=== PATIENT | female | born 1990 | race Caucasian/White ===

== ENCOUNTER 2023-11-25 11:53 | Outpatient (CLI) | payer OTHER, SELFPAY ==
[2023-11-26 15:24] LABS: Strep B DNA Probe Negative (Negative)
[2023-11-26 17:04] LABS: Strep B Susceptibility Needed? No
== END 2023-11-25 11:54 | disposition home or self-care (01) ==
PROVIDERS: Visit Provider Advanced Practice Midwife
DX: Z34.91 Encounter for supervision of normal pregnancy, unspecified, first trimester (principal)
CPT/HCPCS: 86592; 86703; 86704; 86706; 86762; 86787; 86803; 86850; 86900; 86901; 87081; 87086; 87340; 87653

== ENCOUNTER 2023-12-02 12:19 | Outpatient (CLI) | payer OTHER, SELFPAY ==
--- NOTE | 2023-12-02 12:28 | US_ITS ---
Patient: ROLAND HOLDER Facility:?[facility] R[facility] Patient ID:?[id number] Site Patient ID:?[id number]. Site :?1990 Study:?US-OB Pelvis BPP W GROWTH AND UA DOPPLER-12/02/2023 1:06:29 PM Ordering Physician:LEODAN RUTHERFORD Final Report: Indication: Nonreactive nonstress test. Small for dates. Technique: Sonography of the gravid uterus was performed limited to that which is discussed below. Comparison: There are no prior studies for comparison. Findings: The LMP is 12/16/2023. The gestational age is given to be 38 weeks and 0 days based on the LMP. There is no prior ultrasound to my knowledge. The cervix is not visualized. There is a single live intrauterine gestation that is vertex. The single deepest pocket is 4.4 centimeters. A biophysical profile score was performed as per protocol. The total score is 8/8 for gross body movements, tone, respiratory activity and single deepest pocket greater than 2 centimeters. heart rate is 122 beats per minute. Umbilical artery Doppler was performed. An S/D ratio was calculated at 2.1. This is considered normal as it is less than 3.5 at< 34 weeks. The placenta was posterior left lateral. The position relative to the os was uncertain as the head was interposed and the internal os was not clearly identified. Biometry: BPD is 8.9 centimeters corresponding to 35 weeks and 5 days. This is at the 16th percentile Head circumference is 32.1 centimeters corresponds to 36 weeks and 1 day. This is at the 4th percentile Abdominal circumference is 31.5 centimeters corresponding to 35 weeks and 3 days. This is at the 7th percentile Femur length is 7.3 centimeters corresponding to 37 weeks and 1 day. This is at the 30th percentile Estimated weight is 2823 grams. This is at the 16th percentile Impression: 1. The biophysical profile score is 8/8. 2. The umbilical artery S/D ratio is 2.1 which is normal. 3. Average ultrasound age based on current biometry is 36 weeks and 1 day with an estimated date of delivery of 12/29/2023. This is not concordant with the age predicted by LMP which is 38 weeks and 0 days. 4. The weight of 2823 grams is at the 16th percentile 5. Normal fluid volumes. Placenta is left lateral extending posteriorly. The position relative to the os was not well demonstrated due to head. 6. Anatomy was performed only for biometry. 7. If the exact position of the placenta relative to the os needs to be determined, follow up imaging should be performed Dictated by Hunter Chauhan MD @ 12/02/2023 1:22:27 PM Signed by:?Hunter Chauhan MD @12/02/2023 1:22:27 PM (Electronic Signature)
[2023-12-02 12:39] VITALS: BP 124/78; PULSE 66; RESP 16; TEMP 36.4
--- NOTE | 2023-12-02 14:12 | P.OBLDTN_ITS ---
OB - Triage/Final Diagnosis Visit Information Time Seen by Provider: 14:00 Date Seen: 12/02/23 Date of evaluation: 12/02/23 Narrative: The patient is a 33 year old 1 para 0 at 38.0 weeks gestation by LMP, who was sent over from the office with a nonreactive NST and measuring small for dates. HR variability on initial placement of monitors was minimal but pt was turned to her side and then had a reactive monitor strip. A growth US and BPP were done showing EFW 16% and BPP 8/8. Requested Dr. Kuo to review the monitor strip and to discuss plan of care. She felt it was safe to discharge patient with kick count precautions and follow up in clinic on Wednesday with an NST. Discussed with patient and she agreed with this plan. Reason for evaluation: other (nonreactive NST in clinic) Evaluation Vital signs: Vital Signs - 24 hr 12/02/23 12:39 12/02/23 12:39 Temperature 97.6 F Pulse Rate 66 Respiratory Rate 16 Blood Pressure 124/78 Fetus (Single) Heart Rate Baseline: 115 Manager Of Merchandising Variability: Moderate (6-25) Monitor Accelerations: Present Monitor Decelerations: None Final Diagnosis (1) Non-reassuring electronic monitoring tracing: Status: Acute Problem details: at 38.0 weeks monitoring for nonreactive NST in clinic, now resolved. BPP 8/8 Measuring small for dates EFW 16%, SDP 4.4 Plan return to clinic Wednesday12/06/23 for OB visit and NST kick counts at home Return to triage with any concerns of decreased movement
--- NOTE | 2023-12-02 14:41 | PC.OBNST ---
NST Note NST Note Start: 12/02/23 12:21 Freq: ONCE Status: Active Protocol: Document 12/02/23 14:35 FRANCOIS (Rec: 12/02/23 14:41 FRANCOIS [id number]) NST Note 1 Para (# of births) 0 EDC 12/16/23 Gestational Age In Weeks & Days 38 Weeks & 0 Days Patient Presented with Complaint(s) of Other Other Complaints Non reassuring NST from clinic . Reactive Yes Appropriate for Gestational Age Yes SANTINO Dykes RN Date 12/02/23 Reactive Yes Appropriate for Gestational Age Yes SANTINO Walsh CNM Date 12/02/23 OB NST charge Yes Complete NST Note via Write Note Yes The provider's electronic signature indicates the NST is reactive/appropriate for gestational age. *Note to provider: If an addendum is required, open the patient's chart and click on the note under the Nurse/Allied Health tab.
== END 2023-12-02 14:24 | disposition home or self-care (01) ==
LOC: OB OUT 12:19 → OB 12:22
PROVIDERS: Visit Provider Advanced Practice Midwife
DX: O36.5930 Maternal care for other known or suspected poor fetal growth, third trimester, not applicable or unspecified (principal); Z3A.36 36 weeks gestation of pregnancy
CPT/HCPCS: 59025; 76815; 76819; 76820; G0463

== ENCOUNTER 2023-12-06 15:04 | Outpatient (CLI) | payer OTHER, SELFPAY ==
--- NOTE | 2023-12-06 15:06 | US_ITS ---
Patient: ROLAND HOLDER Facility:?[facility] R[facility] Patient ID:?[id number] Site Patient ID:?[id number]. Site :?1990 Study:?US-OB Pelvis BPP-12/06/2023 4:02:15 PM Ordering Physician:Rosio Gómez Final Report: INDICATION: Nonreactive NST. TECHNIQUE: Ultrasound OB pelvis transabdominal. Real-time norris-scale imaging of the fetus was performed without stress testing. COMPARISON: None. FINDINGS: heart rate: Regular, 128 bpm. position: Cephalic. Amniotic fluid volume single deepest pocket 2.8 cm, 2/2. motion 2/2. tone 2/2. breathing movements 2/2. Umbilical artery S/D ratio: Not measured. IMPRESSION: Single viable intrauterine with a biophysical profile 03/16. Dictated by Ashutosh Martinez MD @ 12/06/2023 4:16:58 PM Signed by:?Ashutosh Martinez MD @12/06/2023 4:16:58 PM (Electronic Signature)
[2023-12-06 15:18] VITALS: PULSE 81; O2SAT 97
[2023-12-06 15:19] VITALS: BP 103/50; PULSE 70
[2023-12-06 15:20] VITALS: RESP 18; TEMP 36.8
--- NOTE | 2023-12-06 16:43 | P.OBLDTN_ITS ---
OB - Triage/Final Diagnosis Visit Information Date Seen: 12/06/23 Date of evaluation: 12/06/23 Narrative: The patient is a 33 year old 1 para 0 at 38.4 weeks gestation by LMP, who presents with non-reactive NST in the clinic. Francine transferred care here recently after one visit at another facility and the majority of her care in [place]. She was evaluated for a non-reactive NST last as well. Today her BPP on L&D was 8/8. The tracing was initially non-reactive but did have a reactive tracing and is appreciating good movement. No contractions on the monitor or per the TOCO. Her EFW was 43% on 11/01/23 at a different facility and 16% here on 12/02/23. Since this has occurred two weeks in a row and due to the significant change in EFW I consulted the on-call provider DANISH. She was in agreement that with a 8/8 BPP today and a reactive NST she would be appropriate to discharge today but did recommend an IOL at 39.0 weeks. I had a lengthy discussion with Francine and her partner about the findings and recommendations. We did discuss alternative of close monitoring with bi-weekly BPP and NST if they would decline an IOL. Questions were answered. They are unsure of their decision at this time and would like some time to discuss and decide. Will plan to f/u on Wednesday if they do not reach out before with a decision. Evaluation Vital signs: Vital Signs - 24 hr 12/06/23 15:18 12/06/23 15:19 12/06/23 15:20 Temperature 98.2 F Pulse Rate 70 Respiratory Rate 18 Blood Pressure 103/50 L Pulse Oximetry 97 Fetus (Single) Heart Rate Baseline: 120 Assisted Variability: Moderate (6-25) Monitor Accelerations: Present Monitor Decelerations: None Final Diagnosis (1) : Status: Acute (2) Non-reassuring electronic monitoring tracing: Status: Acute
--- NOTE | 2023-12-06 17:09 | PC.OBNST ---
NST Note NST Note Start: 12/06/23 15:08 Freq: ONCE Status: Active Protocol: Document 12/06/23 16:45 PRATIK (Rec: 12/06/23 17:09 PRATIK [id number]) NST Note 1 Para (# of births) 0 EDC 12/16/23 Gestational Age In Weeks & Days 38 Weeks & 4 Days Patient Presented with Complaint(s) of Other Other Complaints Pt. sent to Center from [facility] for further EFM and BPP. NST in clinic not reactive. Reactive Yes Appropriate for Gestational Age Yes SANTINO Madison Date 12/06/23 Reactive Yes Appropriate for Gestational Age Yes SANTINO Pitts Date 12/06/23 OB NST charge Yes Complete NST Note via Write Note Yes The provider's electronic signature indicates the NST is reactive/appropriate for gestational age. *Note to provider: If an addendum is required, open the patient's chart and click on the note under the Nurse/Allied Health tab.
== END 2023-12-06 16:55 | disposition home or self-care (01) ==
LOC: OB OUT 15:04 → OB 15:05
PROVIDERS: Visit Provider Advanced Practice Midwife
DX: O36.8390 Maternal care for abnormalities of the fetal heart rate or rhythm, unspecified trimester, not applicable or unspecified (principal)
CPT/HCPCS: 59025; 76819; G0463

== ENCOUNTER 2023-12-09 07:00 | Inpatient (IN) | payer OTHER, SELFPAY ==
[2023-12-09] VITALS (38 sets, daily range): BP systolic 103–143; BP diastolic 55–86; PULSE 34–92; RESP 16–18; TEMP 36.4–36.9; BMI 23.6
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
[2023-12-09] MEDS: DINOPROSTONE 10 MG VAGINAL INSERT VAGINAL (09:06)
[2023-12-09] MEDS: hydrOXYzine pamoate 25 MG CAPSULE 100 MG PO (13:29)
[2023-12-09] MEDS: MORPHINE 10 MG/ML inj IM (13:38)
[2023-12-09 13:43] LABS: Basophils Absolute Auto 0.01 K/uL (0.00-0.30); Basophils Percent Auto 0.1 % (0.0-3.0); Eosinophils Absolute Auto 0.08 K/uL (0.00-0.50); Eosinophils Percent Auto 0.9 % (0.0-7.0); Hematocrit 40.2 % (33.0-51.0); Hemoglobin* 13.5 gm/dL (12.0-16.0); Immature Granulocytes Abs Auto 0.03 K/uL (0.00-0.30); Immature Granulocytes Pct Auto 0.3 %; Lymphocytes Percent Auto 17.2 % (20-44); Mean Corpuscular HGB Conc 34 gm/dL (32-36); Mean Corpuscular Hemoglobin 29 pg (26-34); Mean Corpuscular Volume 86 fL (80-100); Monocytes Percent Auto 4.5 % (0.0-11.0); Platelet Count* 217 K/uL (140-440); RDW Coefficient of Variation % 12.5 % (11.5-15.5)
[2023-12-09 13:47] LABS: Slide Review Reflex No
[2023-12-09] MEDS: LACTATED RINGERS 1000 ML 1,000 ML 125 ML IV (15:55)
[2023-12-09] MEDS: BUPIVACAINE 0.25% PF 10 ML 10 ML ML EPIDURAL (16:19)
[2023-12-09] MEDS: ROPIVACAINE 0.2% 100 ml 100 ML 12 MG EPIDURAL (16:25)
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
[2023-12-09] MEDS: ONDANSETRON 2 MG/ML inj 4 MG IV (17:18)
[2023-12-09] MEDS: LACTATED RINGERS 1000 ML 1,000 ML 999 ML IV ×2 (17:30→19:23)
[2023-12-09] MEDS: OXYTOCIN 30 unit/500 ML in NS 30 UNIT/500 ML BAG 300 UNIT IVPB (20:43)
--- NOTE | 2023-12-09 21:35 | W.PM.OBVAGDE ---
OB Procedure Vag Delivery Mother Details Mother Details: The patient is a 33 year-old, 1, now Para 1, admitted on 12/09/23 at 39 0/7 weeks gestation. : 1 Para: 1 Weeks Gestation: 39.0 Admission Date: 12/09/23 Additional Details Amniotic Membrane Status: SROM Amniotic Membrane Rupture Date: 12/09/23 Amniotic Membrane Rupture Time: 17:30 Amniotic Membrane Fluid Description: Clear Analgesia/Anesthesia Type: Epidural Waterbirth: No Pitcoin: Yes ([facility] only) Intrapartal Events: Labor Induction Induction Method: Cervidil Labor Onset: 16:10 Complete: 19:50 Pushin:52 Heart: heart tones during second stage were category II with variable and late decelerations with slow return to baseline at times and moderate variability. FHR responded well to repositioning and maternal guided breathing. Delivery Details Delivery Date: 12/09/23 Delivery Time: 20:42 Route of delivery: Infant Gender: Female Infant Viability: Alive; Heart Rate Present Position at Delivery: OA Delivery Details: Patient was admitted for induction of labor for non-reassurine testing via NST x 2 but BPP of 03/16. Her induction was started with cervadil. She became very uncomfortable not long after it was placed and requested something for pain. She received morphine and vistaril around noon. She felt some relief for a short period of time but after a few hours she felt she needed something more. She requested an epidural and the cervadil was removed when she was comfortable after placement. SROM was suspected at 1730 with clear fluid. Patient was complete at 1950 and pushing at 1952. Patient was repositioned multiple times while pushing to attempt to improve FHR. of a viable female at 2041 in semi-olivares left tilt on the bed. Vertex delivered OA. Compound right hand. No nuchal cord or shoulder. Body delivered easily and without incident. Infant passed to mothers abdomen with a vigorous cry. Cord was wrapped around the legs 3x and easily reduced. Cord was clamped and cut at > 5 minutes. APGARS were 8 at one minute and 9 at five minutes respectively. Mouth was bulb suctioned. Intact placenta with a 3 vessel cord delivered spontaneously at 2049. Fundus firm. Perineal abrasion and small periurethral abrasion identified, no repair. QBL 50 cc. Mother and baby stable; mother plans to breastfeed. weight pending. 1 Minute Interval Total Score: 8 5 Minute Interval Total Score: 9 Additional Details Shoulder Dystocia: No Placenta Delivery Time: 20:50 Placental Delivery Description: Spontaneous Procedure Done: Global Blood Loss: 50 Laceration: Superficial (perineal and periurethral abrasions) Blood Loss Measurement Type: QBL Bakri Used: No Sponge/Need Count Correct: Yes Cord Vessel Description: 3 Vessels, Reduced and Around Extremity (x3 of both feet) Indication for instrumentation: nonreassuring FHR tracing Event Summary Status: Mother and infant were stable after delivery. Disposition: floor
[2023-12-10] MEDS: IBUPROFEN 600 MG TABLET PO ×4 (00:29→19:34)
[2023-12-10] MEDS: ACETAMINOPHEN 500 MG TABLET 1000 MG PO ×4 (01:54→21:11)
[2023-12-10 04:30] VITALS: BP 117/77; PULSE 62; RESP 16; TEMP 36.5; O2SAT 97
[2023-12-10] MEDS: DOCUSATE SODIUM 100 MG CAPSULE PO (08:13)
[2023-12-10 08:19] VITALS: BP 99/62; PULSE 62; RESP 16; TEMP 36.6; O2SAT 97
--- NOTE | 2023-12-10 09:08 | P.OBPN_ITS ---
OB - PN:Subj Subjective Time Seen by Provider: 08:30 Date Seen: 12/10/23 Patient comments OB post-: no complaints, pain well controlled, tolerating diet and flatus present infant status: and doing well [place] feeding status: exclusively Narrative: The patient feels well.? The pain is well controlled with current medications.? She has no new complaints.? Urinary output is adequate and she is voiding without difficulty.? Has a good appetite, is tolerating a general diet, is passing flatus, and has not had a bowel movement.? Has small amount of rubra lochia.? She is ambulating well.?She is and denies concerns at this time. OB - PN: Obj Exam Physical Exam: Vital signs: Temp Pulse Resp BP Pulse Ox O2 Del Method 97.8 F 62 16 99/62 97 Room Air 12/10/23 08:19 12/10/23 08:19 12/10/23 08:19 12/10/23 08:19 12/10/23 08:19 12/10/23 08:19 Narrative: GENERAL APPEARANCE:? normal affect, alert, no distress? MOOD:? appropriate? CHEST:? clear to auscultation and percussion? HEART:? regular rate and rhythm? ABDOMEN:? soft, non-tender the uterine fundus is U/2 and is appropriate for the stage of recovery.? PERINEUM:? mild edema of the perineum, there is a superficial laceration that is healing well.? EXTREMITIES:? normal and no edema? OB - PN: Obj Data Labs Labs: Laboratory Results - last 24 hr 12/09/23 13:34 WBC 8.60 RBC 4.70 Hgb 13.5 Hct 40.2 MCV 86 MCH 29 MCHC 34 RDW Coeff of Charli 12.5 Plt Count 217 Neut % (Auto) 77.0 H Lymph % (Auto) 17.2 L [place] % (Auto) 4.5 Eos % (Auto) 0.9 Baso % (Auto) 0.1 Neut # (Auto) 6.60 Lymph # (Auto) 1.50 [place] # (Auto) 0.40 Eos # (Auto) 0.08 Baso # (Auto) 0.01 Abs Immat Gran (auto) 0.03 Imm/Tot Granulo (auto) 0.3 Blood Type O Positive Antibody Screen NEGATIVE OB - PN: A/P Delivery Assessment and Plan (1) care following vaginal delivery: Status: Acute (2) Lactating mother: Status: Acute Plan day: 1 Plan: routine care Comments: Anticipate discharge home tomorrow.
--- NOTE | 2023-12-10 10:34 | PM.ANPOST ---
Post Anesthesia Note Post Anesthesia Note Patient seen: Inpatient Respiratory Status: adequate Cardiovascular Status: adequate Mental Status: baseline Pain: adequate Temp: baseline Anesthetic awareness: no Complications: none Follow care: none
[2023-12-10 13:40] VITALS: BP 115/76; PULSE 73; RESP 16; O2SAT 99
[2023-12-10 17:25] VITALS: BP 103/70; PULSE 83; RESP 16; TEMP 36.7; O2SAT 98
[2023-12-10 18:06] LABS: Rapid Plasma Reagin (RPR) Non Reactive (Non Reactive)
[2023-12-10 20:45] VITALS: BP 112/74; PULSE 75; RESP 20; TEMP 36.5; O2SAT 97
[2023-12-11] MEDS: IBUPROFEN 600 MG TABLET PO ×2 (03:15→09:53)
[2023-12-11 03:18] VITALS: BP 116/78; PULSE 74; RESP 16; TEMP 36.4; O2SAT 97
[2023-12-11] MEDS: ACETAMINOPHEN 500 MG TABLET 1000 MG PO ×2 (05:00→11:29)
[2023-12-11 08:08] VITALS: BP 108/72; PULSE 76; RESP 18; TEMP 36.4; O2SAT 95
--- NOTE | 2023-12-11 08:55 | P.DS_ITS ---
DS: Providers Provider Time Seen by Provider: 08:55 Date Seen: 12/11/23 Date of admission: 12/09/23 07:00 Primary care physician: Not a Local Provider Admitting Clinician: Chelsea Boone CNM Consults: 12/09/23 07:33 Consult to Locomotive Mechanic Apprentice [CONS] Routine Comment: Reason for Consult:: Adjunct Spanish Instructor Needed Attending Physician on discharge: Chelsea Boone CNM Date of Discharge: 12/11/23 DS: Diagnosis Discharge Diagnosis (1) Lactating mother: Status: Acute (2) care following vaginal delivery: Status: Acute Exam Narrative: Exam Narrative: GENERAL APPEARANCE:? normal affect, alert, no distress? MOOD:? appropriate? CHEST:? clear to auscultation and percussion? HEART:? regular rate and rhythm? ABDOMEN:? soft, non-tender the uterine fundus is U/2 and is appropriate for the stage of recovery.? PERINEUM:? mild edema of the perineum, there is a superficial laceration that is healing well.? EXTREMITIES:? normal and no edema? Const: Vital Signs, click to edit/add: Vital Signs - 24 hr 12/10/23 13:40 12/10/23 17:25 12/10/23 20:45 Temperature 98.1 F 97.7 F Pulse Rate [Pulse Oximeter] 73 83 75 Respiratory Rate 16 16 20 Blood Pressure [Le ft Arm] 115/76 103/70 112/74 Pulse Oximetry 99 98 97 Oxygen Delivery Me thod Room Air Room Air 12/11/23 03:18 12/11/23 08:08 Temperature 97.5 F L 97.5 F L Pulse Rate [Pulse Oximeter] 74 76 Respiratory Rate 16 18 Blood Pressure [Le ft Arm] 116/78 108/72 Pulse Oximetry 97 95 Oxygen Delivery Me thod Room Air Room Air Documenting provider has reviewed patient's vital signs: yes OB - DS: Summary Hospital Course Hospital Course: The patient is a 33 year old G 1 P 1 at 39.2 weeks gestation that was admitted to the Center on 12/09/23 for IOL for non-reassuring FHTs. She had an uncomplicated vaginal delivery. She delivered a viable female infant. She is breast feeding. She is having some pain with latching but is working on the latch. She is concerned about baby not getting enough. the patient has done well. Her pain is well controlled with current medications.? She has no new complaints.? Urinary output is adequate and she is voiding without difficulty.? Has a good appetite, is tolerating a general diet, is passing flatus, and has not had a bowel movement.? Has scant amount of rubra lochia.? She is ambulating well. Peripartum Data delivery method: Vaginal Laceration description: Superficial Episiotomy description: None complications: none [place] Gender: Female Infant Discharge Plan: Home Status at Discharge Functional status at discharge: independent ambulation Overall status at discharge: patient is progressing back to baseline Time Spent with Patient Time attestation: Total time spent providing and/or coordinating discharge services: Discharge Plan Discharge Disposition: Home, Self-Care Date of Admission: 12/09/23 07:00 Attending Provider on Discharge: Rosio Chaves Primary Care Provider: Provider,Not a Local Condition: Stable Anticipated Discharge Date/Time: 12/11/23 10:00 Discharge Medications: New docusate sodium 100 mg Capsule 100 mg PO DAILY Qty: 90 0RF Rx Instructions: Take 1-2 tablets daily as needed for constipation. ibuprofen 600 mg Tablet 600 mg PO Q6H PRNQty: 60 0RF Continued up4 Probiotics Plus Prebiotic 1 billion cell- 1 gram-15 mg tablet,chewable 1 tab PO DAILY DHA 200 mg capsule 200 mg PO DAILY omega-3 fatty acids 1,000 mg capsule 900 mg PO QDAY lecithin 1,200 mg capsule 1,200 mg PO QDAY Patient Comments: sunflower Rx Instructions: give with meal/snack phosphatidylcholine 900 mg capsule See Rx Instructions PO .COMPLEX Rx Instructions: unknown orally; cholecalciferol (vitamin D3) 10 mcg (400 unit) capsule 500 unit PO QDAY magnesium citrate 125 mg capsule 250 mg PO QDAY kelp-vitamin A Capsule See Rx Instructions PO .COMPLEX Rx Instructions: unknown orally; Discontinued valacyclovir 500 mg tablet 500 mg PO BID Qty: 60 0RF evening primrose oil 1,300 mg capsule See Rx Instructions PO DAILY Rx Instructions: unknown orally daily; ferrous sulfate 300 mg (60 mg iron)/5 mL liquid 800 mg PO QDAY Discharge Orders: Discharge Order (Routine); Ordered 12/11/23 Ordered By: Rosio Chaves Patient Education: OB Vaginal/Breast Feeding Additional Instructions: Discharge instructions were reviewed with the patient including signs and symptoms of infection and home going medications.? Lifting Restrictions: 20 pounds for 6? weeks? ?? Do not drive while taking narcotic pain meds.? Off Work or School for 6 weeks.? ?? Symptoms to report to doctor:? -Bleeding that saturates more than one pad per hour? -Passing clots larger than the size of a golf ball? -Pain not relieved by prescribed medication? -Fever above 100.4 degrees Fahrenheit? -A foul vaginal odor? -Difficulty in emotions, mood and functions? -Thoughts of hurting yourself and/or ? -Painful, reddened area in your breast? -Any drainage, redness or tenderness in your IV/epidural site? -Severe headache that doesn't improve after taking medications? -Changes in vision, including temporary loss of vision, blurred vision, and/or light sensitivity? -Upper abdominal pain (usually under ribs on the right side)? -Decrease in urination or painful, frequent urinating? -Chest pain? -Shortness of breath? -Tenderness or pain with redness and/swelling in the calf(s) of y our leg? ?? Follow Up in clinic in 2 and 6 weeks.? ?? consultation services are available to all mothers and babies for the first year after delivery.? To make an appointment, please call [phone].? Activity Level: Activity as Tolerated Discharge Diet: Regular Follow Up Appointments: [facility] [Provider Group] Provider,Not a Local [Primary Care Provider] - Forms: [facility] Info Instructions
[2023-12-11] MEDS: DOCUSATE SODIUM 100 MG CAPSULE PO (09:53)
[2023-12-11] MEDS: LANOLIN CREAM 1 APPLIC TOPICAL (12:34)
== END 2023-12-11 17:20 | disposition home or self-care (01) | DRG 807 ==
PROVIDERS: Admitting Provider Advanced Practice Midwife; Visit Provider Advanced Practice Midwife
DX: O70.0 First degree perineal laceration during delivery (principal); Z37.0 Single live birth; Z3A.39 39 weeks gestation of pregnancy
CPT/HCPCS: 01967; 36415; 59200; 85025; 86592; 86850; 86900; 86901; A9270; J0665; J2270; J2371; J2405; J2795; J7120

== ENCOUNTER 2023-12-13 14:23 | Outpatient (CLI) | payer OTHER, SELFPAY ==
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
== END 2023-12-13 14:24 | disposition home or self-care (01) ==
PROVIDERS: Visit Provider Advanced Practice Midwife
DX: Z39.1 Encounter for care and examination of lactating mother (principal)
CPT/HCPCS: G0463